=== PATIENT | male | born 1990 | race Caucasian/White ===

== ENCOUNTER 2023-03-24 10:41 | Outpatient (AMB) | payer OTHER, SELFPAY ==
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
[2023-03-24 11:01] VITALS: BP 120/82; PULSE 82; RESP 17; O2SAT 98; BMI 25.9
== END 2023-03-24 11:28 | disposition home or self-care (01) ==
PROVIDERS: PCP Physician Assistant; Visit Provider Physician Assistant
DX: M25.531 Pain in right wrist (principal); G47.33 Obstructive sleep apnea (adult) (pediatric); R00.2 Palpitations; F33.0 Major depressive disorder, recurrent, mild; F41.1 Generalized anxiety disorder
CPT/HCPCS: 90471; 90686; 96127; 99204

== ENCOUNTER → 2023-04-01 06:55 | Outpatient (REF) | payer OTHER, SELFPAY ==
--- NOTE | 2023-04-01 06:58 | HM_ITS ---
* Total monitoring time 3 days. * Underlying rhythm is sinus. Average ventricular rate 81/Min. Range 43 to 150/Min. * Extremely rare supraventricular/ventricular ectopy. Minimal burden. * No sustained arrhythmias. * No significant pauses or AV blocks. * Symptoms in patient diary including anxiety, chest pain, rapid/fast heartbeat correlates with sinus rhythm, mild sinus tachycardia. MTDD
== END ==
LOC: HO.CARD 06:55
PROVIDERS: PCP Physician Assistant; Visit Provider Physician Assistant
DX: R00.2 Palpitations (principal)
CPT/HCPCS: 93242

== ENCOUNTER → 2023-04-01 06:58 | Outpatient (BNV) | payer OTHER, SELFPAY | PROVIDERS: PCP Physician Assistant; Visit Provider Internal Medicine | DX: I47.10 Supraventricular tachycardia, unspecified (principal) | CPT/HCPCS: 93244 ==

== ENCOUNTER → 2023-05-05 12:57 | Outpatient (REF) | payer OTHER, SELFPAY | LOC: HO.SL 12:57 | PROVIDERS: PCP Physician Assistant; Visit Provider Physician Assistant | DX: G47.33 Obstructive sleep apnea (adult) (pediatric) (principal) | CPT/HCPCS: 95806 ==

== ENCOUNTER → 2023-05-05 13:19 | Outpatient (BNV) | payer OTHER, SELFPAY | PROVIDERS: PCP Physician Assistant; Visit Provider Internal Medicine | DX: R06.83 Snoring (principal) | CPT/HCPCS: 95806 ==

== ENCOUNTER 2023-05-08 14:43 | Outpatient (RCR) | payer OTHER, SELFPAY ==
--- NOTE | 2023-05-19 08:30 | MHC.OT.DC ---
[address] [phone] F: [phone] Occupational Therapy Discharge Note Patient Name: Armin Lee Provider: Mandeep Shelton Diagnosis: Right wrist pain Date of Surgery: Date of Evaluation: 05/08/23 Date of Discharge: 05/18/23 Treatments to Date: 2 Cancellations to Date: No Shows to Date: Discharge Status: Achieved Goals Improved Function Independent with HEP Discharge Summary: Pt reports limiting mary to 15-20 min intervals with improved pain. Occasional low wrist pain Pain free lifting at work with use of Wrist Widget Pt is independent with self management of occasional low wrist pain 08/01 Electronically Signed By: Raquel Martinez OT CHT clt Reviewed/agree with student documentation: Therapist: Please Sign and return to therapist, thank you for your referral.
== END 2023-05-19 08:31 | disposition home or self-care (01) ==
LOC: HO.OT 14:43
PROVIDERS: PCP Physician Assistant; Visit Provider Physician Assistant
DX: M25.531 Pain in right wrist (principal)
CPT/HCPCS: 97110; 97165

== ENCOUNTER 2023-06-10 15:01 | Outpatient (AMB) | payer OTHER, SELFPAY ==
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
[2023-06-10 15:05] VITALS: BP 120/82; PULSE 84; RESP 17; O2SAT 97; BMI 26.6
== END 2023-06-10 15:41 | disposition home or self-care (01) ==
PROVIDERS: PCP Physician Assistant; Visit Provider Physician Assistant
DX: Z00.00 Encounter for general adult medical examination without abnormal findings (principal); F33.0 Major depressive disorder, recurrent, mild; F41.1 Generalized anxiety disorder; J34.2 Deviated nasal septum
CPT/HCPCS: 99395

== ENCOUNTER 2024-03-09 15:46 | Outpatient (AMB) | payer OTHER, SELFPAY ==
[2024-03-09 15:54] VITALS: BP 110/80; PULSE 90; O2SAT 98; BMI 25.5
--- NOTE | 2024-03-09 15:54 | MHC.PC.OV ---
Vital Signs 03/09/24 15:54 Height 6 ft Weight 188 lb 4 oz BMI 25.5 BP 110/80 Blood Pressure Location Lt brachial Position Sitting Pulse 90 Pulse Source Pulse Oximeter Pulse Oximetry (%) 98 Oxygen Delivery Method Room Air Intake Visit Reasons: annual exam Intake Note: Patient is here today for a physical. 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 Accompanied by: Self / Same As Patient Allergies No Known Allergies Allergy (Verified 03/09/24 16:16) Medication List - Last Reconciled 03/09/24 by Mandeep Shelton PA-C Tobacco use date assessed: 03/09/24 Dental Screening Dental Screen Date: 03/09/24 Did you have a dental visit in the last 12 months?: Yes Did you have a dental problem in the last 6 months where you did not have access to dental care?: No Was dental information given to patient?: Patient has dentist HPI annual exam HPI Details Patient is a 34-year-old male here today for a follow-up visit Past medical history significant for generalized anxiety disorder Unfortunately has not gotten any fasting labs done in promises to do so before his upcoming annual physical .. Anxiety: He reports his anxiety has been much better controlled since not having as much contact with his boss at work. He has stopped using Paxil and feels his anxiety is well-maintained without medication. Does use marijuana at times. 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 Does have family history SVT. Vaccine: Up-to-date with tetanus vaccine, flu vaccine,UTD COVID vaccine [facility] Medical History Spontaneous pneumothorax Family History Mother Mitochondrial disease Hepatitis C Acute severe asthma Father Hypothyroidism Asthma GERD (gastroesophageal reflux disease) Autoimmune hepatitis Peripheral neuropathy Obesity (BMI 30-39.9) Social History Housing: House Alcohol intake: current Alcohol intake frequency: a few times a week Alcohol type: beer Patient Tobacco Use Status: Former Tobacco user Tobacco use type: Cigarette e-Cigarette/Vaping Use: Never Used Substance Use Type: Marijuana service: No Current occupational status: employed 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 1. Little interest or pleasure in doing things: several days 2. Feeling down, depressed, or hopeless: not at all 3. Trouble falling or staying asleep, or sleeping too much: more than half the days 4. Feeling tired or having little energy: several days 5. Poor appetite or overeating: more than half the days 6. Feeling bad about yourself - or that you are a failure or have let yourself or your family down: more than half the days 7. Trouble concentrating on things, such as reading the newspaper or watching television: not at all 8. Moving or speaking so slowly that other people could have noticed. Or the opposite - being so fidgety or restless that you have been moving around a lot more than usual: not at all 9. Thoughts that you would be better off or of hurting yourself in some way: not at all Total score: 8 Depression Screening Interpretation: Positive Depression Screening Follow-up: Existing condition Depression Screening Done: Yes 60447 - PHQ-9 Billing: Yes Source: Developed by Drs. Bud Castro, Nanda Lee, Topher Shepherd and colleagues, with an educational tiffany from [facility]. Thrive Questionnaire Date Thrive assessed: 03/09/24 I am a: Patient What is your living situation today?: I have a steady place to live Within the past 12 months, did the food you bought not last and you didn't have the money to get more?: Never true Within the past 12 months, did you worry whether your food would run out before you got money to buy more?: I choose not to answer this question Do you have trouble paying for medicines?: No Do you have trouble getting transportation to medical appointments?: No Do you have trouble paying your heating and electricity bill?: Yes Do you have trouble taking care of your child, family member or friend?: No Do you have trouble with day-to-day activities such as bathing, preparing meals, shopping, managing finances, etc.?: No Are you currently unemployed and looking for a job?: No Are you interested in more education?: I choose not to answer this question Please select the resources that you would like help with: None Currently or been in a relationship where the following occur: No concerns reported THRIVE Score: 1 AUDIT C Alcohol Use Questionnaire (AUDIT-C) 1. How often do you have a drink containing alcohol?: 2-4 times a month 2. How many drinks containing alcohol do you have on a typical day when you are drinking?: 3 or 4 3. How often do you have six or more drinks on one occasion?: Never Total Score: 3 BRANDI-7 AMB Questionnaire BRANDI-7 Date BRANDI - 7 assessed: 03/09/24 Feeling nervous, anxious, or on edge: 1 = Several days Not being able to stop or control worryin = Not at all Worrying too much about different things: 2 = More than half the days Trouble relaxin = Nearly every day Being so restless that it is hard to sit still: 0 = Not at all Becoming easily annoyed or irritable: 3 = Nearly every day Feeling afraid as if something awful might happen: 0 = Not at all Total BRANDI-7 score (0-4 normal; 5-9 mild; 10-14 moderate; 15-21 severe): 9 Source: Developed by Drs. Bud Castro, Nanda Lee, Topher Shepherd and colleagues, with an educational tiffany from [facility]. BRANDI-7 Assessment Billing BRANDI-7 Assessment Tool: BRANDI-7 Assessment 26528 Review of Systems Const Denies headache(s) Eyes Denies loss of vision ENT Denies vertigo, Denies dizziness, Denies headache(s) and Denies sore throat Card Denies chest pain, Denies leg edema and Denies lightheadedness Resp Denies cough, Denies hemoptysis and Denies wheezing GI Denies abdominal pain, Denies melena, Denies constipation, Denies diarrhea and Denies vomiting Denies dysuria, Denies urinary frequency and Denies urinary urgency Musc Denies arthralgias, Denies joint swelling, Denies numbness and Denies tingling Neuro Denies Abnormal speech present, Denies behavioral changes, Denies vertigo, Denies dizziness, Denies headache(s), Denies loss of vision, Denies memory loss, Denies numbness and Denies tingling Psych Denies anxiety, Denies behavioral changes, Denies depression, Denies memory loss and Denies panic attacks Eric/Lymph Denies easy bleeding and Denies easy bruising Aller/Immun Denies wheezing Physical exam (Primary Care) Vital Signs: Last Vital Signs Pulse 90 03/09/24 15:54 BP 110/80 03/09/24 15:54 Pulse Ox 98 03/09/24 15:54 Oxygen Delivery Method Room Air 03/09/24 15:54 BMI result Body Mass Index 25.5 Tobacco/Smoking Status: Tobacco use Status Tobacco use date assessed 03/09/24 03/09/24 15:57 Patient Tobacco Use Status Former Tobacco user 03/09/24 15:57 Tobacco use type Cigarette 03/09/24 15:57 e-Cigarette/Vaping Use Never Used 03/09/24 15:57 PHQ-9: PHQ-9 Score PHQ-9: Total score 8 03/09/24 16:21 Depression Screening Interpretation: Positive Depression Screening Follow-up: Existing condition Thrive Assessment: Date of Thrive Assessment Date Thrive assessed 03/09/24 03/09/24 16:01 Currently or been in a relationship where the following occur: No concerns reported Const General: healthy appearing, no acute distress, alert and awake Nutritional Appearance: well nourished Orientation/consciousness: oriented to person, oriented to place and oriented to time HENMT Ears: TM's normal bilaterally General nose exam: Normal nasal mucous membranes and turbinates present Eyes Conjunctivae: conjunctivae normal Sclerae: sclerae normal Pupils: Equal, round and reactive pupils present Neck Neck: Yes no lymphadenopathy and Yes no JVD Thyroid: Thyroid normal Carotids: no bruits Resp Effort & Inspection: normal respiratory effort and not tachypneic Auscultation: no crackles, no rales, no rhonchi and no wheezes Cardio Rate: regular rate Rhythm: regular rhythm Heart sounds: no murmurs and normal S1 and S2 GI Palpation (GI): Soft to palpation, nontender, no hepatomegaly and no splenomegaly Auscultation: normal bowel sounds Skin General skin exam: no rashes or lesions noted and dry skin Neuro General: oriented to person, oriented to place and oriented to time Cranial nerves: Yes Equal, round and reactive pupils present Speech: No Abnormal speech present Gait exam (Neuro): Normal gait present Motor exam (neuro): no tremor noted Extrem Right upper extremity: full ROM Left upper extremity: full ROM Right lower extremity: full ROM; no edema Left lower extremity: full ROM; no edema Psych Mental Status: mental status grossly normal Speech and movement: Normal speech and movement present Affect: normal affect Attitude: cooperative Thought process: Normal thought process present Assessment and Plan Assessment & Plan (1) MDD (major depressive disorder), recurrent episode, mild: Code(s): F33.0 - Major depressive disorder, recurrent, mild Plan: Patient's PHQ-9 score positive for depression which has been existing condition for him. He reports smoking a lot of weed which does help him with his mood and depression. Not interested in speak with mental health therapist her trying prescribed medications at this time. (2) BRANDI (generalized anxiety disorder): Code(s): F41.1 - Generalized anxiety disorder Plan: He reports his anxiety is much better since having some scheduled changes at work. Less exposure to his boss whom he had a problem with. He is stopped using Paxil anymore and feels his anxiety is well maintained without medication Orders: Orders Comprehensive [place]. Panel Fast 03/09/24 Z13.1 - Encounter for screening for diabetes mellitus Complete Blood Count no Diff 03/09/24 G47.33 - Obstructive sleep apnea (adult) (pediatric) Coding Level of Care Code Est Pt Level 3 (95872) Diagnoses MDD (major depressive disorder), recurrent episode, mild F33.0 BRANDI (generalized anxiety disorder) F41.1 Additional Codes BRANDI-7 Assessment Billing - BRANDI-7 Assessment Tool: BRANDI-7 Assessment 37960 ([id number])
== END 2024-03-09 16:43 | disposition home or self-care (01) ==
PROVIDERS: PCP Physician Assistant; Visit Provider Physician Assistant
DX: F33.0 Major depressive disorder, recurrent, mild (principal); F41.1 Generalized anxiety disorder

== ENCOUNTER → 2024-03-09 15:46 | Outpatient (BNVA) | payer OTHER, SELFPAY | PROVIDERS: PCP Physician Assistant; Visit Provider Physician Assistant | DX: F33.0 Major depressive disorder, recurrent, mild (principal); F41.1 Generalized anxiety disorder | CPT/HCPCS: 96127; 99212 ==

== ENCOUNTER 2024-08-01 15:54 | Outpatient (AMB) ==
--- NOTE | 2024-08-01 16:03 | MHC.PC.OV ---
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 Accompanied by: Self / Same As Patient Allergies No Known Allergies Allergy (Verified 03/09/24 16:16) Medication List - Last Reconciled 08/01/24 by Mandeep Shelton PA-C No Known Home Meds Tobacco use date assessed: 08/01/24 Dental Screening Dental Screen Date: 08/01/24 Did you have a dental visit in the last 12 months?: Yes Did you have a dental problem in the last 6 months where you did not have access to dental care?: No Was dental information given to patient?: Patient has dentist HPI annual exam HPI Details Patient is a 34-year-old male here for routine annual physical Past medical history significant for generalized anxiety disorder .. Anxiety: He reports his anxiety has been much better controlled since not having as much contact with his boss at work. He has stopped using Paxil and feels his anxiety is well-maintained without medication. Does use marijuana at times. SVT: Recent child monitor done showing some sinus tachycardia and rare episodes of SVT. Does have family history SVT. Vaccine: Up-to-date with tetanus vaccine, NEeds flu vaccine,UTD COVID vaccine [facility] Medical History Spontaneous pneumothorax Family History Mother Mitochondrial disease Hepatitis C Acute severe asthma Father Hypothyroidism Asthma GERD (gastroesophageal reflux disease) Autoimmune hepatitis Peripheral neuropathy Obesity (BMI 30-39.9) Social History Housing: House Alcohol intake: current Alcohol intake frequency: a few times a week Alcohol type: beer Patient Tobacco Use Status: Former Tobacco user Tobacco use type: Cigarette e-Cigarette/Vaping Use: Never Used Substance Use Type: Marijuana service: No Current occupational status: employed 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 1. Little interest or pleasure in doing things: not at all 2. Feeling down, depressed, or hopeless: several days 3. Trouble falling or staying asleep, or sleeping too much: several days 4. Feeling tired or having little energy: nearly every day 5. Poor appetite or overeating: not at all 6. Feeling bad about yourself - or that you are a failure or have let yourself or your family down: several days 7. Trouble concentrating on things, such as reading the newspaper or watching television: not at all 8. Moving or speaking so slowly that other people could have noticed. Or the opposite - being so fidgety or restless that you have been moving around a lot more than usual: not at all 9. Thoughts that you would be better off or of hurting yourself in some way: not at all Total score: 6 Depression Screening Interpretation: Positive Depression Screening Follow-up: Existing condition Depression Screening Done: Yes 02995 - PHQ-9 Billing: Yes Source: Developed by Drs. Bud Castro, Nanda Lee, Topher Shepherd and colleagues, with an educational tiffany from [employer]. Thrive Questionnaire Date Thrive assessed: 08/01/24 I am a: Patient What is your living situation today?: I have a steady place to live Within the past 12 months, did the food you bought not last and you didn't have the money to get more?: Sometimes True Within the past 12 months, did you worry whether your food would run out before you got money to buy more?: Sometimes True Do you have trouble paying for medicines?: No Do you have trouble getting transportation to medical appointments?: No Do you have trouble paying your heating and electricity bill?: No Do you have trouble taking care of your child, family member or friend?: No Do you have trouble with day-to-day activities such as bathing, preparing meals, shopping, managing finances, etc.?: No Are you currently unemployed and looking for a job?: No Are you interested in more education?: No Please select the resources that you would like help with: None Currently or been in a relationship where the following occur: No concerns reported THRIVE Score: 2 AUDIT C Alcohol Use Questionnaire (AUDIT-C) 1. How often do you have a drink containing alcohol?: 2-4 times a month 2. How many drinks containing alcohol do you have on a typical day when you are drinking?: 3 or 4 3. How often do you have six or more drinks on one occasion?: Never Total Score: 3 BRANDI-7 AMB Questionnaire BRANDI-7 Date BRANDI - 7 assessed: 08/01/24 Feeling nervous, anxious, or on edge: 1 = Several days Not being able to stop or control worryin = Several days Worrying too much about different things: 1 = Several days Trouble relaxin = Not at all Being so restless that it is hard to sit still: 0 = Not at all Becoming easily annoyed or irritable: 1 = Several days Feeling afraid as if something awful might happen: 1 = Several days Total BRANDI-7 score (0-4 normal; 5-9 mild; 10-14 moderate; 15-21 severe): 5 Source: Developed by Drs. Bud Castro, Nanda Lee, Topher Shepherd and colleagues, with an educational tiffany from [employer]. BRANDI-7 Assessment Billing BRANDI-7 Assessment Tool: BRANDI-7 Assessment 95845 Review of Systems Const Denies body aches, Denies chills, Denies excessive sweating, Denies fatigue, Denies fever(s) and Denies headache(s) Eyes Denies blurry vision ENT Denies dysphagia, Denies vertigo, Denies dizziness, Denies headache(s), Denies hearing loss and Denies tinnitus Card Denies chest pain, Denies chest pain with activity, Denies syncope, Denies irregular heart rhythm and Denies dyspnea Resp Denies chest congestion, Denies cough, Denies hemoptysis, Denies dyspnea and Denies wheezing GI Denies abdominal pain, Denies melena, Denies hematochezia, Denies coffee ground emesis, Denies dysphagia, Denies diarrhea, Denies nausea and Denies vomiting Denies difficulty urinating, Denies dysuria, Denies urinary frequency, Denies urinary hesitancy and Denies urinary urgency Musc Denies arthralgias, Denies limited range of motion, Denies muscle cramps and Denies muscle weakness Skin/Breast Denies rash and Denies skin ulcer Neuro Denies Abnormal speech present, Denies confusion, Denies vertigo, Denies dizziness, Denies syncope, Denies headache(s), Denies memory loss and Denies seizure-like activity Psych Denies anxiety, Denies confusion, Denies depression, Denies memory loss, Denies panic attacks and Denies paranoia Endo Denies excessive sweating, Denies fatigue, Denies flushing, Denies polydipsia and Denies polyuria Aller/Immun Denies wheezing Physical exam (Primary Care) Vital Signs: Last Vital Signs Temp 97.3 F 08/01/24 16:04 Pulse 78 08/01/24 16:04 BP 116/80 08/01/24 16:04 Pulse Ox 98 08/01/24 16:04 Oxygen Delivery Method Room Air 08/01/24 16:04 BMI result Body Mass Index 27.8 Tobacco/Smoking Status: Tobacco use Status Tobacco use date assessed 08/01/24 08/01/24 16:09 Patient Tobacco Use Status Former Tobacco user 08/01/24 16:09 Tobacco use type Cigarette 08/01/24 16:09 e-Cigarette/Vaping Use Never Used 08/01/24 16:09 PHQ-9: PHQ-9 Score PHQ-9: Total score 6 08/01/24 16:29 Depression Screening Interpretation: Positive Depression Screening Follow-up: Existing condition Thrive Assessment: Date of Thrive Assessment Date Thrive assessed 08/01/24 08/01/24 16:09 Currently or been in a relationship where the following occur: No concerns reported Const General: cooperative, comfortable, no acute distress, alert and awake; No confusion Orientation/consciousness: oriented to person, oriented to place, patient oriented x3 and No confusion HENMT Head: Yes normocephalic Ears: external ears normal and TM's normal bilaterally Face and sinus: No sinus tenderness Mouth: Normal oral and palatal mucosa present and tongue normal Teeth and gingiva: dentition normal and gingiva normal Throat: Yes posterior oropharynx normal, Yes tonsils normal and Yes uvula midline Eyes Conjunctivae: conjunctivae normal Sclerae: sclerae normal Pupils: Equal, round and reactive pupils present EOM: EOMs intact bilaterally Direct Ophthalmoscopy: No no photophobia Neck Neck: Yes no lymphadenopathy, No tender and Yes no JVD Thyroid: Thyroid normal Carotids: no bruits Chest Chest palpation & inspection: no tenderness Resp Effort & Inspection: normal respiratory effort, no audible wheezes, not labored and no stridor Auscultation: no crackles, no rales, no rhonchi and no wheezes Cardio Jugular venous distension: no JVD Rate: regular rate, not bradycardic and not tachycardic Rhythm: regular rhythm Bruits: no carotid bruits Peripheral pulses: Peripheral pulses 2+ throughout GI Inspection: Yes normal to inspection, No abdominal wall ecchymosis and No visible herniation Palpation (GI): Soft to palpation, nontender, no guarding, not rigid and No hepatosplenomegaly present Auscultation: normoactive bowel sounds General: Yes no CVA tenderness Back/Spine/Pelvis Back: no CVA tenderness and No back tenderness Cervical Spine: cervical ROM normal Thoracic/Lumbar Spine: thoracic and lumbar spine normal to inspection, straight leg raise negative bilaterally, No thoraco-lumbar ROM limited and No lumbar spinal tenderness Skin Lesions: no lesions Rashes: no rashes Wounds: no wounds Neuro General: oriented to person, oriented to place, patient oriented x3, CN's II-XI intact bilaterally and No confusion Cranial nerves: Yes Equal, round and reactive pupils present and Yes Normal accommodation reflex present Cognition (Neuro): normal cognition Speech: No Abnormal speech present Gait exam (Neuro): Normal gait present Motor exam (neuro): 5/5 motor strength present throughout Extrem Right upper extremity: full ROM; no cyanosis Left upper extremity: full ROM; no cyanosis Right lower extremity: no edema Left lower extremity: no edema Psych Appearance: grossly normal Mental Status: mental status grossly normal Affect: normal affect Attitude: cooperative Thought process: Normal thought process present Office Procedures Flu Questionnaire Does the patient have a severe egg allergy?: No Does the patient have severe life threatening allergies?: No Does the patient have a fever or illness today?: No Has the patient ever had Guillain-[place] Syndrome?: No Has the patient ever had any past reaction to a flu shot?: No Immunizations Fluarix Triv [id number] (PF) 45 mcg (15 mcg x 3)/0.5 mL IM syringe Performing Provider: Mandeep Shelton PA-C Performing Location: [facility] Administered by: BRI Mattson on 08/01/24 16:43 Dose Route Admin Location Dispensed Lot Number Expiration Date NDC [employer] 0.5 mL IM Left Deltoid 0.5 mL [id number] 12/19/24 82035-087-05 BuildFax VIS Given Date VIS Provided VIS Publication Date 08/01/24 Single Vaccine 21 Eligibility Eligibility Date Funding Source Not VFC Eligible 08/01/24 Private Coding Level of Care Code Est Pt Prev Care 18-39y(67303) Diagnoses Annual physical exam Z00.00 BRANDI (generalized anxiety disorder) F41.1 MDD (major depressive disorder), recurrent episode, mild F33.0 Additional Codes BRANDI-7 Assessment Billing - BRANDI-7 Assessment Tool: BRANDI-7 Assessment 66753 ([id number]) PHQ-9 - 73530 - PHQ-9 Billing: Yes ([id number]) Assessment & Plan Assessment & Plan (1) Annual physical exam: Code(s): Z00.00 - Encounter for general adult medical examination without abnormal findings Category: Medical Plan: as scheduled (2) BRANDI (generalized anxiety disorder): Code(s): F41.1 - Generalized anxiety disorder Category: Medical Plan: Patient's BRANDI-7 score positive for anxiety which has been existing condition for him. He is not interested in restarting medication as he feels his anxiety has been better controlled since has been changes in his life. (3) MDD (major depressive disorder), recurrent episode, mild: Code(s): F33.0 - Major depressive disorder, recurrent, mild Category: Medical Plan: He does use marijuana quite regularly. Patient's PHQ-9 score positive for mild depression which has been existing condition for him. Again does use marijuana quite regularly which he reports helps his mental health. Orders: Orders Influenza [id number] Immunization Today Z23 - Encounter for immunization
[2024-08-01 16:04] VITALS: BP 116/80; PULSE 78; TEMP 36.3; O2SAT 98; BMI 27.8
== END 2024-08-01 16:41 | disposition home or self-care (01) ==
DX: Z00.00 Encounter for general adult medical examination without abnormal findings (principal); F41.1 Generalized anxiety disorder; F33.0 Major depressive disorder, recurrent, mild; Z23 Encounter for immunization

== ENCOUNTER → 2024-08-01 15:54 | Outpatient (BNVA) | payer OTHER, SELFPAY | PROVIDERS: PCP Physician Assistant; Visit Provider Physician Assistant | DX: Z00.00 Encounter for general adult medical examination without abnormal findings (principal); Z23 Encounter for immunization; F41.1 Generalized anxiety disorder; F33.0 Major depressive disorder, recurrent, mild | CPT/HCPCS: 90471; 90656; 96127; 99395 ==